=== PATIENT | female | born 1995 | race Caucasian/White ===

== ENCOUNTER 2021-07-13 19:53 | Emergency (ER) | payer OTHER ==
[2021-07-13 21:57] LABS: Urine Blood 2+ (Negative); Urine Glucose Negative (Negative); Urine Protein Trace (Negative); Urine Specific Gravity 1.025 (1.005-1.030)
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
[2021-07-13 23:14] VITALS: BP 150/96; TEMP 98.8; O2SAT 97
[2021-07-13 23:34] LABS: Urine Specific Gravity/Preg 1.025 (1.005-1.030)
== END 2021-07-13 22:53 | disposition home or self-care (01) ==
LOC: ER 19:53
DX: M54.2 Cervicalgia (principal); V49.50XA Passenger injured in collision with unspecified motor vehicles in traffic accident, initial encounter; F17.210 Nicotine dependence, cigarettes, uncomplicated; Z88.5 Allergy status to narcotic agent
CPT/HCPCS: 81003; 81025; 99284

== ENCOUNTER 2021-10-10 21:21 | Emergency (ER) | payer SELFPAY ==
--- OUTSIDE RECORDS SUMMARY | 2021-10-10 21:24 | XMS REPORT | Continuity of Care Document ---
:1995 Author Organization [facility] t Address [address] [place] [address] Care Team Providers Name Role Phone V_Landis Attending Clinician Unavailable G_Pappas Attending Clinician Unavailable V_Landis Admitting Clinician Unavailable G_Pappas Admitting Clinician Unavailable Payers Payer Name Policy Type Policy Number Effective Date Expiration Date abhi [facility] [id number] SERVICES [facility] Problems Condition Condition Condition Status Onset Resolution Last Treating Co mments Source Name Details Category Date Date Treatment Clinician Date Severe Severe Problem Active 2020-0 [place] obesity Obesity 1-21 da 00:00: Medical 00 Group Amenorrhea Amenorrhea Problem Active 2020-0 [facility] 1-21 da 00:00: Medical 00 Group Hidradenit Hidradenit Problem Active 2020-0 [facility] is is 1-21 da suppurativ Suppurativ 00:00: Me dical a a 00 Group Primary Primary Problem Active 2020-0 [place] infertilit Infertilit 1-21 da y y 00:00: Medical 00 Group Allergies, Adverse Reactions, Alerts Allergy Allergy Status Severity Reaction(s) Onset Inactive Treating Comm ents Source Name Type Date Date Clinician Codeine Allergy Active Moderate Anaphylaxis [facility] to to severe da substanc Medical e Group Social History Smoking Status Start Date Stop Date Source Heavy Tobacco Smoker [facility] Medications Ordered Filled Start Stop Current Ordering Indication Dosage Frequency Signature Comments Components Source Medication Medication Date Date Medication? Clinician (SIG) Name Name clindamycin clindamycin No clindamyci [place] 1 % topical 1 % topical n 1 % da gel APPLY A gel APPLY A topical Medical THIN LAYER THIN LAYER gel APPLY Group TO THE TO THE A THIN AFFECTED AFFECTED LAYER TO AREA(S) BY AREA(S) BY THE TOPICAL TOPICAL AFFECTED ROUTE 2 ROUTE 2 AREA(S) BY TIMES PER TIMES PER TOPICAL DAY DAY ROUTE 2 TIMES PER DAY Keflex 500 Keflex 500 No 1capsul BID Keflex 500 [place] mg capsule mg capsule e(s) mg capsule da Take 1 Take 1 Take 1 Medical capsule capsule capsule Group twice a day twice a day twice a by oral by oral day by route for route for oral route 10 days. 10 days. for 10 days. Prometrium Prometrium No 1capsul Q1D Prometrium [place] 200 mg 200 mg e(s) 200 mg da capsule capsule capsule Medica l Take 1 Take 1 Take 1 Group capsule capsule capsule every day every day every day by oral by oral by oral route for route for route for 10 days. 10 days. 10 days. Vital Signs Vital Name Observation Time Observation Value Comments Source BP Diastolic 2019-09-18 00:00:00 87 mm[Hg] [facility] Height 2019-09-18 00:00:00 66 [in_i] [facility] BMI (Body Mass 2019-09-18 00:00:00 51 kg/m2 [facility] Index) Group BP Systolic 2019-09-18 00:00:00 129 mm[Hg] [facility] Body Weight 2019-09-18 00:00:00 316.2 [lb_av] [facility] Procedures This patient has no known procedures. Plan of Care Planned Activity Planned Date Details Comments Source Diagnostic Test 2019-10-17 test, [facility] 00:00:00 urine [code = Group test, urine] Diagnostic Test 2019-09-18 urinalysis, [facility] Pending 00:00:00 dipstick [code = Group urinalysis, dipstick] Diagnostic Test 2019-09-18 pap, LB + CT/NG/TV [facility] Pending 00:00:00 + reflex HR HPV Group [code = pap, LB + CT/NG/TV + reflex HR HPV] Diagnostic Test 2019-09-18 FSH [facility] 00:00:00 (follicle-stimulati Group ng hormone), serum [code = FSH (follicle-stimulati ng hormone), serum] Diagnostic Test 2019-09-18 lh (luteinizing [facility] Pending 00:00:00 hormone), serum Group [code = lh (luteinizing hormone), serum] Diagnostic Test 2019-09-18 prolactin, serum [facility] 00:00:00 [code = prolactin, Group serum] Diagnostic Test 2019-09-18 TSH, serum or [facility] 00:00:00 plasma [code = TSH, Group serum or plasma] Diagnostic Test 2019-09-18 HbA1c (hemoglobin [facility] 00:00:00 A1c), blood [code = Group HbA1c (hemoglobin A1c), blood] Diagnostic Test 2019-09-18 TSH + free T4, [facility]ending 00:00:00 serum [code = TSH + Group free T4, serum] Diagnostic Test 2019-09-18 lipid panel, serum [facility] Pending 00:00:00 [code = lipid Group panel, serum] Encounters Start End Encounter Admission Attending Care Care Encounter Source Date/Time Date/Time Type Type Clinicians Facility Department ID 2020-07-17 2020-07-17 Outpatient V_Landis [facility] [id number] [place] 02:19:00 02:19:00 [id number] 2020-04-11 2020-04-11 Outpatient V_Landis [facility] MM [id number] [place] 09:34:00 09:34:00 [id number] 2020-03-10 2020-03-10 Outpatient G_Pappas [facility] MM [id number] [place] 05:47:00 05:47:00 [id number] [facility] 2019-11-10 2019-11-10 [place] [id number] [place] 11:19:00 11:19:00 [id number] [facility] 2019-10-26 2019-10-26 Outpatient G_Pappas [facility]G [id number] [place] 01:37:00 01:37:00 0227 [facility] 2019-10-22 2019-10-22 Outpatient G_Pappas [facility] [id number] [place] 08:12:00 08:12:00 [id number] [facility] 2019-09-20 2019-09-20 Outpatient G_Pappas [facility]G [id number] [place] 10:11:00 10:11:00 0122 [facility] 2019-09-20 2019-09-20 Outpatient G_Pappas [facility] MM [id number] [place] 10:11:00 10:11:00 0129 [facility] 2019-09-18 2019-09-18 Outpatient G_Pappas [facility] MM [id number] [place] 04:44:00 04:44:00 0120 Medical Group 2019-09-18 2019-09-18 Jessica Foss [facility] [place] - [id number] [place] 00:00:00 00:00:00 [facility] Bab[facility] da WHNP: [address] [facility] [address] [address] , Ph. [phone] 2019-09-15 2019-09-15 Outpatient G_Pappas [facility] [id number] [place] 02:09:00 02:09:00 0117 Medical Group 2019-09-11 2019-09-11 Outpatient G_Pappas [facility] [id number] [place] 11:47:00 11:47:00 0113 Medical Group 2019-09-11 2019-09-11 Outpatient G_Pappas [facility] [id number] [place] 11:47:00 11:47:00 0116 [facility] Group Results Test Description Test Time Test Comments Results Result Comments Source pap, LB + CT/NG/TV + reflex HR HPV 2019-09-22 00:00:00 Test Item Value Reference Range Interpretation Comme nts chlamydia trachomatis by real-time PCR (reflex to azithromycin nega tive resistance by pyrosequencing) (test code = chlamydia trachomatis by real-time PCR (reflex to azithromycin resistance by pyrosequencing) ) trichomonas vaginalis by real-time PCR (reflex to metronidazole neg ative resistance) (test code = trichomonas vaginalis by real-time PCR (reflex to metronidazole resistance)) neisseria gonorrhoeae by real-time PCR (reflex to antibiotic negati ve resistance by molecular analysis) (test code = neisseria gonorrhoea e by real-time PCR (reflex to antibiotic resistance by molecular analysis)) liquid Pap test with reflex to HPV type-detect 3.0 high risk if ASCUS negative (test code = liquid Pap test with reflex to HPV type-detect 3.0 hig h risk if ASCUS) [facility] Serum or [id number] 08:10:00 Test Item Value Reference Range Interpretation Comments follicle stimulating hormone (test 6.6 mIU/mL . code = follicle stimulating hormone) [facility] [Units/volume] in Serum or [id number] 08:10:00 Test Item Value Reference Range Interpretation Comments luteinizing hormone (test code = 11.8 mIU/mL . luteinizing hormone) [facility] [Mass/volume] in Serum or [id number] 08:10:00 Test Item Value Reference Range Interpretation Comments Prolactin [Mass/volume] in Serum 18.9 NG/mL 4.8-23.3 or Plasma (test code = 2842-3) [facility] [Mass/volume] in [id number] 08:07:00 Test Item Value Reference Range Interpretation Comments Hemoglobin A1c [Mass/volume] in Blood 5.6 % 4.0-6.0 (test code = 11276-7) [facility] panel - Serum or [id number] 08:07:00 Test Item Value Reference Range Interpretation Comments cholesterol level (test code = 174 mg/dL 150-200 cholesterol level) triglycerides level (test code = 116 mg/dL <150 triglycerides level) HDL cholesterol (test code = HDL 44 mg/dL >65 L cholesterol) LDL cholesterol direct (test code = 118 mg/dL <100 H LDL cholesterol direct) cholesterol risk ratio (test code = 3.954 cholesterol risk ratio) [facility] [Units/volume] in Serum or [id number] 08:07:00 Test Item Value Reference Range Interpretation Comments Thyrotropin [Units/volume] in 2.53 uIU/mL 0.36-3.74 Serum or Plasma (test code = 3016-3) [facility] (T4[facility] free [Mass/volume] in Serum or Plasma 2019-09-19 08:07:00 Test Item Value Reference Range Interpretation Comments free T4 (test code = free T4) 1.07 NG/dL 0.93-1.7 [facility] [Mass/volume] in [id number] 08:07:00 Test Item Value Reference Range Interpretation Comments Hemoglobin A1c [Mass/volume] in Blood 5.6 % 4.0-6.0 (test code = 66147-5) [facility] panel - Serum or [id number] 08:07:00 Test Item Value Reference Range Interpretation Comments cholesterol level (test code = 174 mg/dL 150-200 cholesterol level) triglycerides level (test code = 116 mg/dL <150 triglycerides level) HDL cholesterol (test code = HDL 44 mg/dL >65 L cholesterol) LDL cholesterol direct (test code = 118 mg/dL <100 H LDL cholesterol direct) cholesterol risk ratio (test code = 3.954 cholesterol risk ratio) [facility] [Units/volume] in Serum or [id number] 08:07:00 Test Item Value Reference Range Interpretation Comments Thyrotropin [Units/volume] in 2.53 uIU/mL 0.36-3.74 Serum or Plasma (test code = 3016-3) [facility] (T4[facility] free [Mass/volume] in Serum or Plasma 2019-09-19 08:07:00 Test Item Value Reference Range Interpretation Comments free T4 (test code = free T4) 1.07 NG/dL 0.93-1.7 [facility] macro (dipstick) panel - [id number] 16:25:00 Test Item Value Reference Range Interpretation Comments Color (test code = Color) Yellow Appearance (test code = Appearance) Clear Glucose (test code = Glucose) Negative Bilirubin (test code = Bilirubin) Negative Ketone (test code = Ketone) Negative Specific [place] (test code = 1.025 Specific [place]) Blood (test code = Blood) Negative pH (test code = pH) 6.0 Protein (test code = Protein) Negative Urobilinogen (test code = .2 Urobilinogen) Nitrite (test code = Nitrite) negative Leukocytes (test code = Leukocytes) Trace [facility] macro (dipstick) panel - [id number] 16:25:00 Test Item Value Reference Range Interpretation Comments Color (test code = Color) Yellow Appearance (test code = Appearance) Clear Glucose (test code = Glucose) Negative Bilirubin (test code = Bilirubin) Negative Ketone (test code = Ketone) Negative Specific [place] (test code = 1.025 Specific [place]) Blood (test code = Blood) Negative pH (test code = pH) 6.0 Protein (test code = Protein) Negative Urobilinogen (test code = .2 Urobilinogen) Nitrite (test code = Nitrite) negative Leukocytes (test code = Leukocytes) Trace [facility]
[2021-10-10 22:53] LABS: Absolute Lymphocytes (CBC) 3.5 K/uL (0.7-4.9); Hematocrit 43.2 % (36.0-45.0); Lymphocytes % 34.7 % (15.3-44.8); MPV 8.3 fL (7.6-11.3); RBC Red Blood Cell Count 4.93 M/uL (3.86-4.86)
[2021-10-10 23:10] LABS: Protime INR 1.07
[2021-10-10 23:18] LABS: ALT/SGPT 118 U/L (12-78); AST/SGOT 49 U/L (15-37); Albumin 3.5 g/dL (3.4-5.0); Alkaline Phosphatase 43 U/L (45-117); BUN Blood Urea Nitrogen 13 mg/dL (7-18); Bicarbonate 26 mmol/L (21-32); Bilirubin Direct < 0.1 mg/dL (0-0.2); Bilirubin Total 0.2 mg/dL (0.2-1.0); Glucose Level 109 mg/dL (74-106); Magnesium 2.1 mg/dL (1.8-2.4); NT PRO-BNP 26 pg/mL (<125); Potassium 3.7 mmol/L (3.5-5.1); Protein, Total 8.3 g/dL (6.4-8.2); Sodium Level 140 mmol/L (136-145)
[2021-10-11 00:01] LABS: Urine Blood Negative (Negative); Urine Glucose Negative (Negative); Urine Protein Negative (Negative); Urine Specific Gravity 1.025 (1.005-1.030)
[2021-10-11 00:05] LABS: Urine Specific Gravity/Preg 1.025 (1.005-1.030)
--- NOTE | 2021-10-11 01:50 | EDPHYS ---
Physician Documentation [facility] Name: Tameka Lees Age: 26 yrs Sex: Female : 1995 Arrival Date: 10/10/2021 Time: 21:23 Bed 4 Private MD: ED Physician Gasper Tolentino HPI: 10/10 22:35 This 26 yrs old Female presents to ER via Ambulatory with complaints of fast heart cp rate, Dizziness, Chest Pain. 22:35 The patient or guardian reports chest pain that is located primarily in the anterior cp chest wall, mid chest. The patient presents with a history of heart racing. Context: The symptoms occur at rest. Onset: The symptoms/episode began/occurred this morning. Duration: The patient or guardian reports multiple episodes, that are intermittent. The pain radiates to to lower chest below breast bilaterally. Associated signs and symptoms: Pertinent positives: anxiety, chest pain, cough, lightheadedness, dizziness, Pertinent negatives: fever, syncope, vomiting. The chest pain is described as sharp. 22:35 Severity of pain: in the emergency department the pain has improved. 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 Flu vaccine is not up to date. - Social history:: Smoking status: Patient reports the use of cigarette tobacco products, smokes one-half pack cigarettes per day. ROS: 22:40 Constitutional: Negative for body aches, chills, fever, poor PO intake. cp 22:40 Eyes: Negative for injury, pain, redness, and discharge. cp 22:40 ENT: Negative for drainage from ear(s), ear pain, sore throat, difficulty swallowing, difficulty handling secretions. 22:40 Cardiovascular: Positive for chest pain, palpitations, Negative for edema. 22:40 Respiratory: Positive for cough, with no reported sputum, Negative for shortness of breath, wheezing. 22:40 Abdomen/GI: Negative for abdominal pain, nausea, vomiting, and diarrhea. 22:40 Back: Negative for radiated pain. 22:40 : Negative for urinary symptoms. 22:40 Neuro: Positive for dizziness, Negative for altered mental status, syncope, weakness. 22:40 All other systems are negative. Exam: 22:45 Constitutional: The patient appears in no acute distress, alert, awake, cp non-diaphoretic, non-toxic, well developed, well nourished, obese. 22:45 Head/Face: Normocephalic, atraumatic. cp 22:45 Eyes: Periorbital structures: appear normal, Pupils: equal, round, and reactive to light and accomodation, Extraocular movements: intact throughout, Conjunctiva: normal, no exudate, no injection, Sclera: no appreciated abnormality, Lids and lashes: appear normal, bilaterally. 22:45 ENT: External ear(s): are unremarkable, Nose: is normal, Mouth: Lips: moist, Oral mucosa: pink and intact, moist, Posterior pharynx: is normal, airway is patent, no erythema, no exudate. 22:45 Neck: ROM/movement: is normal, is supple, without pain, no range of motions limitations. 22:45 Chest/axilla: Inspection: normal. 22:45 Cardiovascular: Rate: normal, Rhythm: regular, Heart sounds: murmur, not appreciated, Edema: is not appreciated, JVD: is not appreciated. 22:45 Respiratory: the patient does not display signs of respiratory distress, Respirations: normal, no use of accessory muscles, no retractions, labored breathing, is not present, Breath sounds: are clear throughout, no decreased breath sounds, no stridor, no wheezing. 22:45 Abdomen/GI: Exam negative for discomfort, distension, guarding, Inspection: obese 22:45 Back: pain, is absent, ROM is normal. 22:45 Neuro: Orientation: to person, place \T\ time. Mentation: is normal, Motor: moves all fours, strength is normal, Sensation: is normal. Vital Signs: 21:35 BP 144 / 85; Pulse 97; Resp 18; Temp 98; Pulse Ox 97% ; Weight 145.15 kg; Height 5 ft. vc1 7 in. (170.18 cm); Pain 7/10; 22:37 BP 104 / 61; Pulse 89; Resp 18; Pulse Ox 100% on R/A; ll3 23:58 BP 112 / 57; Pulse 85; Resp 21; Pulse Ox 100% on R/A; ll3 10/11 02:06 BP 111 / 71; Pulse 73; Resp 19; Pulse Ox 99% on R/A; ll3 10/10 21:35 Body Mass Index 50.12 (145.15 kg, 170.18 cm) vc1 MDM: 10/10 22:23 Patient medically screened. cp 23:00 Differential diagnosis: abnormal EKG, acute myocardial infarction, acute pericarditis, cp anxiety, chest wall pain, cholecystitis, Cholelithiasis costochondritis, arrythmia, dehydration, stress disorder, pericarditis, pleurisy, pneumonia, pneumothorax, pulmonary embolus. 10/11 01:48 Data reviewed: vital signs, nurses notes, lab test result(s), EKG, radiologic studies, cp CT scan, plain films. 01:48 Data interpreted: teletypesetter monitor: rate is 73 beats/min, rhythm is normal sinus rhythm, cp Interpretation: normal rate, normal rhythm, Pulse oximetry: on room air is 99 %. Interpretation: normal. Test interpretation: by ED physician or midlevel provider: ECG, plain radiologic studies. ED course: VSS. Labs, EKG and radiology studies reviewed. Patient concerned symptoms due to anxiety, but recommend f/u with cardiology for Holter monitor placement. Return to ED worsening symptoms. 10/10 22:28 Order name: Basic Metabolic Panel; Complete Time: 23:26 cp 10/10 22:28 Order name: CBC with Diff; Complete Time: 23:26 cp 10/10 22:28 Order name: LFT's; Complete Time: 23:26 cp 10/10 22:28 Order name: Magnesium; Complete Time: 23:26 cp 10/10 22:28 Order name: NT PRO-BNP; Complete Time: 23:26 cp 10/10 22:28 Order name: PT-INR; Complete Time: 23:26 cp 10/10 22:28 Order name: Troponin HS; Complete Time: 23:26 cp 10/10 22:28 Order name: XRAY Chest (1 view) cp 10/10 22:28 Order name: EKG; Complete Time: 22:28 cp 10/10 22:28 Order name: Cardiac monitoring; Complete Time: 22:37 cp 10/10 23:42 Order name: D-Dimer EDMS 10/11 00:01 Order name: Urine Dipstick-Ancillary EDMS 10/11 00:03 Order name: CT Chest For PE Angio cp 10/11 00:03 Order name: Urine --Ancillary (enter results) cs9 10/10 22:28 Order name: EKG - Nurse/Tech; Complete Time: 22:37 cp 10/10 22:28 Order name: IV Saline Lock; Complete Time: 22:37 cp 10/10 22:28 Order name: Labs collected and sent; Complete Time: 22:58 cp 10/10 22:28 Order name: O2 Per Protocol; Complete Time: 22:37 cp 10/10 22:28 Order name: O2 Sat Monitoring; Complete Time: 22:37 cp 10/10 22:28 Order name: Urine Dipstick-Ancillary (obtain specimen); Complete Time: 00:16 cp 10/10 22:28 Order name: Urine Test (obtain specimen); Complete Time: 00:16 cp Administered Medications: No medications were administered Disposition Summary: 10/11/21 01:49 Discharge Ordered Location: Home cp Problem: new cp Symptoms: have improved cp Condition: Stable cp Diagnosis - Palpitations cp - Chest pain, unspecified cp Followup: cp - With: Uriel Garibay MD - When: 2 - 3 days - Reason: Recheck today's complaints Discharge Instructions: - Discharge Summary Sheet cp - Nonspecific Chest Pain, Adult cp - Palpitations cp - Aspirin and Your Heart cp Forms: - Medication Reconciliation Form cp - Thank You Letter cp - Antibiotic Education cp - Prescription Opioid Use cp - Work release form ll3 Signatures: Dispatcher [employer] EDMS Prabhakar Almeida PA PA cp Christal Brooks, RN RN vc1
--- NOTE | 2021-10-11 01:50 | ER ---
Nurse's Notes [facility] Name: Tameka Lees Age: 26 yrs Sex: Female : 1995 Arrival Date: 10/10/2021 Time: 21:23 Bed 4 Private MD: Diagnosis: Palpitations;Chest pain, unspecified Presentation: 10/10 21:35 Chief complaint: Patient states: I was feeling dizzy this morning so I ate and went to 1 work. I went to work and was dizzy, clammy and having chest pain. I have a history of anxiety and it kind of feels like I was having an attack. Coronavirus screen: Vaccine status: Patient reports being unvaccinated. Ebola Screen: No symptoms or risks identified at this time. Initial Sepsis Screen: Does the patient meet any 2 criteria? No. Patient's initial sepsis screen is negative. Does the patient have a suspected source of infection? No. Patient's initial sepsis screen is negative. Risk Assessment: Do you want to hurt yourself or someone else? Patient reports no desire to harm self or others. Onset of symptoms was October 10, 2021 at 06:00. 21:35 Method Of Arrival: Ambulatory vc1 21:35 Acuity: JF 3 vc1 Triage Assessment: 21:39 General: Appears in no apparent distress. Behavior is calm. Pain: Complains of pain in vc1 anterior aspect of right upper chest, anterior aspect of left upper chest, xiphoid area and mid-sternal area. Cardiovascular: Reports chest pain, diaphoresis, lightheadedness. 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 Flu vaccine is not up to date. - Social history:: Smoking status: Patient reports the use of cigarette tobacco products, smokes one-half pack cigarettes per day. Screenin:37 Abuse screen: Denies threats or abuse. Nutritional screening: No deficits noted. ll3 Tuberculosis screening: No symptoms or risk factors identified. Fall Risk No fall in past 12 months (0 pts). No secondary diagnosis (0 pts). IV access (20 points). Ambulatory Aid- None/Bed Rest/Nurse Assist (0 pts). Gait- Normal/Bed Rest/Wheelchair (0 pts) Mental Status- Oriented to own ability (0 pts). Total Shepherd Fall Scale indicates No Risk (0-24 pts). Assessment: 22:37 General: Appears in no apparent distress. uncomfortable, Behavior is cooperative, ll3 anxious. Pain: Complains of pain in chest Pain radiates to xiphoid area Pain currently is 7 out of 10 on a pain scale. Pain began 9 AM this morning Is continuous. 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 Cardiovascular: Patient's skin is warm and dry. Rhythm is sinus rhythm Chest pain is described as Pain is 7 out of 10 on a pain scale. is located in anterior chest wall radiates to right xiphoid area began 9 AM this morning episodes are continuous. Respiratory: Respiratory effort is even, unlabored, Respiratory pattern is regular, symmetrical. Derm: Skin is pink, warm \T\ dry. 23:58 Reassessment: Patient and/or family updated on plan of care and expected duration. Pain ll3 level reassessed. Patient is alert, oriented x 3, equal unlabored respirations, skin warm/dry/pink. 10/11 00:02 Reassessment: Critical lab D-Dimer [id number] Porter notified. st1 01:49 Reassessment: Patient and/or family updated on plan of care and expected duration. Pain ll3 level reassessed. Patient is alert, oriented x 3, equal unlabored respirations, skin warm/dry/pink. Vital Signs: 10/10 21:35 BP 144 / 85; Pulse 97; Resp 18; Temp 98; Pulse Ox 97% ; Weight 145.15 kg; Height 5 ft. vc1 7 in. (170.18 cm); Pain 7/10; 22:37 BP 104 / 61; Pulse 89; Resp 18; Pulse Ox 100% on R/A; ll3 23:58 BP 112 / 57; Pulse 85; Resp 21; Pulse Ox 100% on R/A; ll3 10/11 02:06 BP 111 / 71; Pulse 73; Resp 19; Pulse Ox 99% on R/A; ll3 10/10 21:35 Body Mass Index 50.12 (145.15 kg, 170.18 cm) vc1 ED Course: 10/10 21:23 Patient arrived in ED. kc5 21:39 Triage completed. vc1 21:40 Arm band placed on right wrist. vc1 22:21 Prabhakar Almeida PA is PHCP. cp 22:21 Gasper Tolentino MD is Attending Physician. cp 22:23 Karon Cortez, RN is Primary Nurse. st1 22:37 Patient has correct armband on for positive identification. Placed in gown. Bed in low ll3 position. Call light in reach. Side rails up X 1. Adult w/ patient. certified tumor registrar on. Pulse ox on. NIBP on. 22:37 Inserted saline lock: 20 gauge in left antecubital area, using aseptic technique. ll3 Patient maintains SpO2 saturation greater than 95% on room air. 22:49 XRAY Chest (1 view) In Process Unspecified. EDMS 02 00:49 CT Chest For PE Angio In Process Unspecified. EDMS 01:49 Uriel Garibay MD is Referral Physician. cp 02:07 No provider procedures requiring assistance completed. IV discontinued, intact, ll3 bleeding controlled, No redness/swelling at site. Pressure dressing applied. Administered Medications: No medications were administered Outcome: 01:49 Discharge ordered by . cp 02:07 Discharged to home ambulatory, with family. ll3 02:07 Condition: stable 02:07 Discharge instructions given to patient, Instructed on discharge instructions, follow up and referral plans. Demonstrated understanding of instructions, follow-up care. 02:07 Patient left the ED. ll3 Signatures: Dispatcher [employer] EDCO Prabhakar Almeida PA PA cp Mary Marks RN RN ll3 Trice Nayak kc5 Karon Cortez, RN RN st1 Christal Brooks RN RN vc1
[2021-10-11 02:40] VITALS: TEMP 98
[2021-10-11 02:44] VITALS: BP 111/71; O2SAT 99
--- NOTE | 2021-10-11 07:37 | RAD REPORT ---
EXAM DESCRIPTION: RAD - Chest Single View - 10/10/2021 10:48 pm CLINICAL HISTORY: CHEST PAIN COMPARISON: No comparisons FINDINGS: Lines: None. Lungs: No evidence of edema or pneumonia. Pleural: No significant pleural effusions or pneumothorax. Cardiac: The heart size is within normal limits. Bones: No acute fractures. Other: IMPRESSION: No acute cardiopulmonary disease.
--- NOTE | 2021-10-11 20:15 | RAD REPORT ---
EXAM DESCRIPTION: CT - Chest For Pe Angio - 10/11/2021 7:20 am CLINICAL HISTORY: The patient is 26 years old and is Female; CHEST PAIN TECHNIQUE: Axial computed tomographic angiography images of the chest with intravenous contrast. S agittal and coronal reformatted images were created and reviewed. This CT exam was performed using one or more of the following dose reduction techniques: automated exposure control, adjustment of t he mA and/or kV according to patient size, and/or use of iterative reconstruction technique. MIP reconstructed images were created and reviewed. COMPARISON: No relevant prior studies available. FINDINGS: PULMONARY ARTERIES: The main pulmonary arteries and proximal segmental branches opacify normally. No pulmonary embolism. AORTA: No acute findings. No thoracic aortic aneurysm. LUNGS: Calcified granuloma within left lower lobe is present. Minimal dependent atelectasis in th e lung bases is present. The lungs are otherwise clear. No mass. PLEURAL SPACE: Unremarkable. No significant effusion. No pneumothorax. HEART: Unremarkable. No cardiomegaly. No significant pericardial effusion. No evidence of R V dysfunction. BONES/JOINTS: No acute fracture. No dislocation. SOFT TISSUES: Unremarkable. LYMPH NODES: Unremarkable. No enlarged lymph nodes. LIVER: The liver is enlarged and diffusely fatty. IMPRESSION: The main pulmonary arteries and proximal segmental branches opacify normally. The florin mckenzie of the pulmonary vessels are inadequately evaluated secondary to contrast timing. 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 The interpreting radiologist is fully responsible for the content of the report.
== END 2021-10-11 02:07 | disposition home or self-care (01) ==
LOC: ER 21:21
DX: R07.9 Chest pain, unspecified (principal); R00.2 Palpitations; F41.9 Anxiety disorder, unspecified; F17.210 Nicotine dependence, cigarettes, uncomplicated; Z88.5 Allergy status to narcotic agent
CPT/HCPCS: 36415; 71045; 71275; 80048; 80076; 81003; 81025; 83735; 83880; 84484; 85025; 85379; 85610; 93005; 99285; Q9967

== ENCOUNTER 2021-11-15 11:20 | Emergency (ER) | payer SELFPAY ==
--- OUTSIDE RECORDS SUMMARY | 2021-11-15 11:23 | XMS REPORT | Continuity of Care Document ---
:1995 Author Organization [facility] t Address [address] [place] [address] Care Team Providers Name Role Phone V_Landis Attending Clinician Unavailable G_Pappas Attending Clinician Unavailable V_Landis Admitting Clinician Unavailable G_Pappas Admitting Clinician Unavailable Payers Payer Name Policy Type Policy Number Effective Date Expiration Date abhi BARBA [facility] [id number] SERVICES [facility] FIDELITY ASSURANCE Problems Condition Condition Condition Status [...] Date Stop Date Source Heavy Tobacco Smoker [facility] Medications Ordered Filled Start [...] Medical Group Height 2019-09-18 00:00:00 66 [in_i] [facility] BMI (Body Mass 2019-09-18 00:00:00 51 kg/m2 [facility] Medical Index) Group BP Systolic 2019-09-18 00:00:00 129 mm[Hg] [facility] Body Weight 2019-09-18 00:00:00 316.2 [lb_av] [facility] Procedures This patient has no known procedures. Plan of Care Planned Activity Planned Date Details Comments Source Diagnostic Test 2019-10-17 test, [facility] 00:00:00 urine [code = Group test, urine] Diagnostic Test 2019-09-18 urinalysis, [facility] 00:00:00 dipstick [code = Group urinalysis, dipstick] Diagnostic Test 2019-09-18 pap, LB + CT/NG/TV [facility]ending 00:00:00 + reflex HR HPV Group [code = pap, LB + CT/NG/TV + reflex HR HPV] Diagnostic Test 2019-09-18 FSH [facility] 00:00:00 (follicle-stimulati Group ng hormone), serum [code = FSH (follicle-stimulati ng hormone), serum] Diagnostic Test 2019-09-18 lh (luteinizing [facility] Pending 00:00:00 hormone), serum Group [code = lh (luteinizing hormone), serum] Diagnostic Test 2019-09-18 prolactin, serum [facility] 00:00:00 [code = prolactin, Group serum] Diagnostic Test 2019-09-18 TSH, serum or [facility] 00:00:00 plasma [code = TSH, Group serum or plasma] Diagnostic Test 2019-09-18 HbA1c (hemoglobin [facility] 00:00:00 A1c), blood [code = Group HbA1c (hemoglobin A1c), blood] Diagnostic Test 2019-09-18 TSH + free T4, [facility]ending 00:00:00 serum [code = TSH + Group free T4, serum] Diagnostic Test 2019-09-18 lipid panel, serum [facility] 00:00:00 [code = lipid Group panel, serum] Encounters Start End Encounter Admission Attending Care Care Encounter Source Date/Time Date/Time Type Type Clinicians Facility Department ID 2020-07-17 2020-07-17 Outpatient V_Landis [facility] [id number] [facility] 02:19:00 02:19:00 [id number] 2020-04-11 2020-04-11 Outpatient V_Landis [facility] [id number] [place] 09:34:00 09:34:00 08[facility] 2020-03-10 2020-03-10 Outpatient G_Pappas [facility] [id number] [place] 05:47:00 05:47:00 0812 [facility] 2019-11-10 2019-11-10 Outpatient G_[place]app[place] [facility] [place] [id number] [place] 11[facility]19:00 11:19:00 0313 [facility] 2019-10-26 2019-10-26 Outpatient G_Pappas [facility] [id number] [place] 01:37:00 01:37:00 0227 [facility] 2019-10-22 2019-10-22 Outpatient G_Pappas [facility] [id number] [place] 08:12:00 08:12:00 [id number] [facility] 2019-09-20 2019-09-20 Outpatient G_Pappas [facility] [id number] [place] 10:11:00 10:11:00 0122 [facility] 2019-09-20 2019-09-20 Outpatient G_Pappas [facility] [id number] [place] 10:11:00 10:11:00 0129 [facility] 2019-09-18 2019-09-18 Outpatient G_Pappas [facility] MM [id number] [place] 04:44:00 04:44:00 0120 Medical Group 2019-09-18 2019-09-18 Jessica Foss [facility] [place] - [id number] [place] 00:00:00 00:00:00 [facility] Babatunde da WHNP: [address] [address] , Ph. [phone] 2019-09-15 2019-09-15 Outpatient G_Pappas [facility] [id number] [place] 02:09:00 02:09:00 0117 Medical Group 2019-09-11 2019-09-11 Outpatient G_Pappas [facility] [id number] [place] 11:47:00 11:47:00 0113 Medical Group 2019-09-11 2019-09-11 Outpatient G_Pappas [facility] [id number] [place] 11:47:00 11:47:00 0116 [facility] Results [...] type-detect 3.0 hig h risk if ASCUS) [facility]Un[facility]] [facility] Serum or [id number] 08:10:00 Test Item Value Reference Range Interpretation Comments follicle stimulating hormone (test 6.6 mIU/mL . code = follicle stimulating hormone) [facility] [Units/volume] in Serum or [id number] 08:10:00 Test Item Value Reference Range Interpretation Comments luteinizing hormone (test code = 11.8 mIU/mL . luteinizing hormone) [facility] [Mass/volume] in Serum or [id number] 08:10:00 Test Item Value Reference Range Interpretation Comments Prolactin [Mass/volume] in Serum 18.9 NG/mL 4.8-23.3 or Plasma (test code = 2842-3) [facility] [Mass/volume] in [id number] 08:07:00 Test Item Value Reference Range Interpretation Comments Hemoglobin A1c [Mass/volume] in Blood 5.6 % 4.0-6.0 (test code = 00285-9) [facility] panel - Serum or [id number] 08:07:00 Test Item Value Reference Range Interpretation Comments cholesterol level (test code = 174 mg/dL 150-200 cholesterol level) triglycerides level (test code = 116 mg/dL <150 triglycerides level) HDL cholesterol (test code = HDL 44 mg/dL >65 L cholesterol) LDL cholesterol direct (test code = 118 mg/dL <100 H LDL cholesterol direct) cholesterol risk ratio (test code = 3.954 cholesterol risk ratio) [facility] [Units/volume] in Serum or [id number] 08:07:00 Test Item Value Reference Range Interpretation Comments Thyrotropin [Units/volume] in 2.53 uIU/mL 0.36-3.74 Serum or Plasma (test code = 3016-3) [facility] (T4[facility] free [Mass/volume] in Serum or Plasma 2019-09-19 08:07:00 Test Item Value Reference Range Interpretation Comments free T4 (test code = free T4) 1.07 NG/dL 0.93-1.7 [facility] [Mass/volume] in [id number] 08:07:00 Test Item Value Reference Range Interpretation Comments Hemoglobin A1c [Mass/volume] in Blood 5.6 % 4.0-6.0 (test code = 38283-0) [facility] panel - Serum or [id number] 08:07:00 Test Item Value Reference Range Interpretation Comments cholesterol level (test code = 174 mg/dL 150-200 cholesterol level) triglycerides level (test code = 116 mg/dL <150 triglycerides level) HDL cholesterol (test code = HDL 44 mg/dL >65 L cholesterol) LDL cholesterol direct (test code = 118 mg/dL <100 H LDL cholesterol direct) cholesterol risk ratio (test code = 3.954 cholesterol risk ratio) [facility] [Units/volume] in Serum or [id number] 08:07:00 Test Item Value Reference Range Interpretation Comments Thyrotropin [Units/volume] in 2.53 uIU/mL 0.36-3.74 Serum or Plasma (test code = 3016-3) [facility] (T4[facility] free [Mass/volume] in Serum or Plasma 2019-09-19 08:07:00 Test Item Value Reference Range Interpretation Comments free T4 (test code = free T4) 1.07 NG/dL 0.93-1.7 [facility] HospitalUrinal[facility] macro (dipstick) panel - [id number] 16:25:00 Test Item Value Reference Range Interpretation Comments Color (test code = Color) Yellow Appearance (test code = Appearance) Clear Glucose (test code = Glucose) Negative Bilirubin (test code = Bilirubin) Negative Ketone (test code = Ketone) Negative Specific Ney (test code = 1.025 Specific Ney) Blood (test code = Blood) Negative pH (test code = pH) 6.0 Protein (test code = Protein) Negative Urobilinogen (test code = .2 Urobilinogen) Nitrite (test code = Nitrite) negative Leukocytes (test code = Leukocytes) Trace [facility] macro (dipstick) panel - [id number] 16:25:00 Test Item Value Reference Range Interpretation Comments Color (test code = Color) Yellow Appearance (test code = Appearance) Clear Glucose (test code = Glucose) Negative Bilirubin (test code = Bilirubin) Negative Ketone (test code = Ketone) Negative Specific Ney (test code = 1.025 Specific Ney) Blood (test code = Blood) Negative pH (test code = pH) 6.0 Protein (test code = Protein) Negative Urobilinogen (test code = .2 Urobilinogen) Nitrite (test code = Nitrite) negative Leukocytes (test code = Leukocytes) Trace [facility]
[2021-11-15 13:16] LABS: SARS-COV-2 RT PCR NEGATIVE (NEGATIVE)
--- NOTE | 2021-11-15 14:04 | RAD REPORT ---
EXAM DESCRIPTION: RAD - Chest Single View - 11/15/2021 1:43 pm CLINICAL HISTORY: COUGH COMPARISON: Chest Single View dated 10/10/2021 FINDINGS: Lines: None. Lungs: No evidence of edema or pneumonia. Pleural: No significant pleural effusions or pneumothorax. Cardiac: The heart size is within normal limits. Bones: No acute fractures. Other: IMPRESSION: No acute cardiopulmonary disease.
--- NOTE | 2021-11-15 14:13 | ER ---
Nurse's Notes [facility] Name: Tameka Lees Age: 26 yrs Sex: Female : 1995 Arrival Date: 11/15/2021 Time: 11:24 Bed 16 Private MD: Diagnosis: Acute upper respiratory infection, unspecified Presentation: 11/15 11:37 Chief complaint: Patient states: covid/flu symptoms x 2 weeks; also states chest pain. vg1 Stated 'I just need a note for work stating Im sick'. Coronavirus screen: Vaccine status: Patient reports being unvaccinated. Client denies travel out of the [place] in the last 14 days. cough unrelated to allergies, runny nose, shaking with chills, sore throat, Client presents with at least one sign or symptom that may indicate coronavirus-19. Standard/surgical mask placed on the client. Ebola Screen: Patient negative for fever greater than or equal to 101.5 degrees Fahrenheit, and additional compatible Ebola Virus Disease symptoms. Initial Sepsis Screen: Does the patient meet any 2 criteria? No. Patient's initial sepsis screen is negative. Does the patient have a suspected source of infection? No. Patient's initial sepsis screen is negative. Risk Assessment: Do you want to hurt yourself or someone else? Patient reports no desire to harm self or others. Onset of symptoms was November 15, 2021. 11:37 Method Of Arrival: Ambulatory vg1 11:37 Acuity: JF 4 vg1 Triage Assessment: 11:40 General: Appears in no apparent distress. comfortable, Behavior is calm, cooperative. vg1 Pain: Complains of pain in chest. Cardiovascular: Patient's skin is warm and dry. 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 - Social history:: Smoking status: Patient reports the use of cigarette tobacco products, 5 cigarettes/day, Reported history of juuling and/or vaping. Screenin:14 Abuse screen: Denies threats or abuse. Denies injuries from another. Nutritional ic1 screening: No deficits noted. Tuberculosis screening: No symptoms or risk factors identified. Fall Risk None identified. Assessment: 12:14 General: Appears uncomfortable, Behavior is calm, cooperative, appropriate for age. ic1 Pain: Complains of pain in chest Pain does not radiate. Pain began suddenly. Neuro: Level of Consciousness is awake, alert, obeys commands, Oriented to person, place, situation. Cardiovascular: Reports chest pain. Respiratory: Reports cough that is Denies shortness of breath. GI: No deficits noted. : No deficits noted. EENT: No deficits noted. Derm: No deficits noted. Musculoskeletal: Reports headache. Vital Signs: 11:37 BP 144 / 72; Pulse 80; Resp 18; Temp 98.1; Pulse Ox 97% ; Weight 149.69 kg; Height 5 vg1 ft. 6 in. (167.64 cm); Pain 3/10; 14:20 BP 112 / 54; Pulse 58; Resp 16; Pulse Ox 98% on R/A; ic1 11:37 Body Mass Index 53.26 (149.69 kg, 167.64 cm) vg1 ED Course: 11:24 Patient arrived in ED. ja2 11:25 Milly Pierre FNP-C is [facility]. kb 11:25 Suleman Aponte MD is Attending Physician. kb 11:40 Triage completed. vg1 11:40 Arm band placed on. vg1 11:41 Mckenna Aparicio, RN is Primary Nurse. ic1 11:49 Strep Sent. mh5 11:49 COVID-19/FLU A+B (Document "Date of Onset" if Symptomatic) Sent. mh5 11:50 Patient has correct armband on for positive identification. Bed in low position. Call [facility] light in reach. Side rails up X 1. Adult w/ patient. Pulse ox on. NIBP on. 11:50 COVID swab sent to lab. Strep swab sent to lab. mh5 12:14 No provider procedures requiring assistance completed. Patient maintains SpO2 ic1 saturation greater than 95% on room air. 13:43 Chest Single View XRAY In Process Unspecified. EDMS 14:28 Patient did not have IV access during this emergency room visit. ic1 Administered Medications: No medications were administered Outcome: 14:12 Discharge ordered by MD. kb 14:27 Discharged to home ambulatory, with significant other. ic1 14:27 Condition: stable 14:27 Discharge instructions given to patient, Instructed on discharge instructions, follow up and referral plans. Demonstrated understanding of instructions, follow-up care. 14:30 Patient left the ED. ic1 Signatures: Dispatcher [employer] EDMilly Cantu FNP-C FNP-Ckb Martinez, Maria mh5 Garcia, Victoria, RN RN vg1 Petra Matos Iesha, JULIANA RN ic1
--- NOTE | 2021-11-15 14:13 | EDPHYS ---
Physician Documentation [facility] Name: Tameka Lees Age: 26 yrs Sex: Female : 1995 Arrival Date: 11/15/2021 Time: 11:24 Bed 16 Private MD: ED Physician Suleman Aponte HPI: 11/15 11:41 This 26 yrs old Female presents to ER via Ambulatory with complaints of Cough, Chest kb Pain, Headache, Sore Throat, Pain All Over. 11:41 The patient or guardian reports cough, flu symptoms, myalgias. Onset: The kb symptoms/episode began/occurred 2 week(s) ago. Severity of symptoms: At their worst the symptoms were mild, moderate, in the emergency department the symptoms are unchanged. Modifying factors: The symptoms are alleviated by nothing, the symptoms are aggravated by nothing. Associated signs and symptoms: Pertinent positives: rhinorrhea, sore throat. The patient has not experienced similar symptoms in the past. The patient has not recently seen a physician. 11:42 Pt reports cough, congestion, chest pain, sore throat, headache and bodyaches for 2 kb weeks. States she came in today because she needs a note for work. 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 - Social history:: Smoking status: Patient reports the use of cigarette tobacco products, 5 cigarettes/day, Reported history of juuling and/or vaping. ROS: 11:40 Constitutional: Negative for fever, chills, and weight loss. kb 11:40 ENT: Positive for rhinorrhea, sinus congestion, sore throat. 11:40 Respiratory: Positive for cough, Negative for dyspnea on exertion, hemoptysis, orthopnea, pleurisy, shortness of breath, sputum production, wheezing. 11:40 Neuro: Positive for headache. 11:40 All other systems are negative. 11:42 Constitutional: Positive for body aches. kb Exam: 11:39 Constitutional: This is a well developed, well nourished patient who is awake, alert, kb and in no acute distress. Head/Face: Normocephalic, atraumatic. ENT: Moist Mucous membranes Cardiovascular: Regular rate and rhythm with a normal S1 and S2. No gallops, murmurs, or rubs. No pulse deficits. Respiratory: Respirations even and unlabored. No increased work of breathing. Talking in full sentences Skin: Warm, dry with normal turgor. Normal color. MS/ Extremity: Pulses equal, no cyanosis. Neurovascular intact. Full, normal range of motion. Neuro: Awake and alert, GCS 15, oriented to person, place, time, and situation. Moves all extremities. Normal gait. Psych: Awake, alert, with orientation to person, place and time. Behavior, mood, and affect are within normal limits. 11:39 ENT: Posterior pharynx: is normal. Vital Signs: 11:37 BP 144 / 72; Pulse 80; Resp 18; Temp 98.1; Pulse Ox 97% ; Weight 149.69 kg; Height 5 vg1 ft. 6 in. (167.64 cm); Pain 3/10; 14:20 BP 112 / 54; Pulse 58; Resp 16; Pulse Ox 98% on R/A; ic1 11:37 Body Mass Index 53.26 (149.69 kg, 167.64 cm) vg1 MDM: 11:39 Patient medically screened. kb 11:39 Data reviewed: vital signs, nurses notes. Data interpreted: Pulse oximetry: on room air kb is 100 %. Interpretation: normal. 14:12 Counseling: I had a detailed discussion with the patient and/or guardian regarding: the kb historical points, exam findings, and any diagnostic results supporting the discharge/admit diagnosis, lab results, radiology results, the need for outpatient follow up, a family practitioner, to return to the emergency department if symptoms worsen or persist or if there are any questions or concerns that arise at home. 11/15 11:35 Order name: COVID-19/FLU A+B (Document "Date of Onset" if Symptomatic); Complete Time: kb 13:19 11/15 11:35 Order name: Strep; Complete Time: 13:00 kb 11/15 11:39 Order name: Chest Single View XRAY; Complete Time: 14:12 kb 11/15 12:58 Order name: Throat Culture EDMS Administered Medications: No medications were administered Disposition Summary: 11/15/21 14:12 Discharge Ordered Location: Home kb Condition: Stable kb Diagnosis - Acute upper respiratory infection, unspecified kb Followup: kb - With: Emergency Department - When: As needed - Reason: Worsening of condition Followup: kb - With: Private Physician - When: 2 - 3 days - Reason: Recheck today's complaints, Continuance of care, Re-evaluation by your physician Discharge Instructions: - Discharge Summary Sheet kb - Upper Respiratory Infection, Adult, [id number] kb - Viral Respiratory Infection, [id number]-Onmi kb Forms: - Medication Reconciliation Form kb - Thank You Letter kb - Work release form kb - Antibiotic Education kb - Prescription Opioid Use kb Signatures: Dispatcher [employer] Milly Posada, HOSTAGE NEGOTIATOR-C HOSTAGE NEGOTIATOR-Khadijah Rosales, RN RN vg1
[2021-11-15 14:46] VITALS: TEMP 98.1
[2021-11-15 14:48] VITALS: BP 112/54; O2SAT 98
== END 2021-11-15 14:30 | disposition home or self-care (01) ==
LOC: ER 11:20
DX: J06.9 Acute upper respiratory infection, unspecified (principal); I49.9 Cardiac arrhythmia, unspecified; F17.210 Nicotine dependence, cigarettes, uncomplicated; Z20.822 Contact with and (suspected) exposure to COVID-19; Z88.5 Allergy status to narcotic agent; Z79.82 Long term (current) use of aspirin
CPT/HCPCS: 0240U; 71045; 87070; 87081; 99284

== ENCOUNTER 2022-09-16 20:58 | Emergency (ER) | payer OTHER ==
--- OUTSIDE RECORDS SUMMARY | 2022-09-16 21:03 | XMS REPORT | Continuity of Care Document ---
:1995 Author Organization [facility] t Address [address] [place] [address] Care Team Providers Name Role Phone SURENDRA SHEA BARR Primary Care Physician Unavailable Magdy Yao Attending Clinician MAGDY PORTER Attending Clinician Unavailable CHRIS Attending Clinician Unavailable Yayo Attending Clinician Unavailable Lynette Attending Clinician Unavailable MAGDY PORTER Admitting Clinician Unavailable CHRIS Admitting Clinician Unavailable Yayo Admitting Clinician Unavailable Lynette Admitting Clinician Unavailable Payers Payer Name Policy Type Policy Number Effective Date Expiration Date abhi [facility] [id number] SERVICES [facility] FIDELITY ASSURANCE Problems Condition Condition Condition Status Onset Resolution Last Treating Co mments Source Name Details Category Date Date Treatment Clinician Date Severe Severe Problem Active [place] obesity Obesity 1- da 00:00: Medical 00 Group Amenorrhea Amenorrhea Problem Active [facility] - da 00:00: Medical 00 Group Hidradenit Hidradenit Problem Active [facility] is is 09-19 da suppurativ Suppurativ 00:00: Me dical a a 00 Group Primary Primary Problem Active [place] infertilit Infertilit 09-19 da y y 00:00: Medical 00 Group No known No known Disease Unive rs active active ity of problems problems [facility] Allergies, Adverse Reactions, Alerts Allergy Allergy Status Severity Reaction(s) Onset Inactive Treating Comm ents Source Name Type Date Date Clinician Codeine Propensi Active Anaphylaxis Un mike ty to 09-05 ity of adverse 00:00: [place] reaction 00 Medical s Branch CODEINE DRUG Active Anaphylaxis Univ ers INGREDI 09-05 ity of 00:00: [place] 00 Medical Branch Codeine Allergy Active Moderate Anaphylaxis M [facility] to to severe da substanc Medical e Group NO KNOWN Drug Active Univers ALLERGIE Class ity of S [facility] Social History Social Habit Start Date Stop Date Quantity Comments Source Exposure to 2022-08-26 2022-09-05 Not sure [facility] SARS-CoV-2 (event) 00:00:00 18:24:00 Medica l Branch Sex Assigned At [birth year] [facility] [place] 00:[facility]:00:00 Medical Branch Smoking Status Start Date Stop Date Source Tobacco smoking consumption Univ [facility] Medical unknown Branch Heavy Tobacco Smoker [facility] Medications Ordered Filled Start Stop Current Ordering Indication Dosage Frequency Signature Comments Components Source Medication Medication Date Date Medication? Clinician (SIG) Name Name amoxicillin 2022- No 500mg 500 mg, U nivers (TRIMOX) 09-06 Oral, ity of capsule 500 01:58: 02:05 [place] 00 :00 dose, On Medical 09/05/22 Branch at 1997, GIULIA
Re ason for Anti-Infec tive: Documented Infection< br>Documen karon Infection Site: HEENT
D uration of Therapy: Other (see Comments) amoxicillin 2022- Yes [id number] 500mg Take 1 Univers 500 mg 09-05 capsule by ity of capsule 00:00: 05:59 mouth in [place] 00 :00 the Medical morning Branch and 1 capsule in the evening. Do all this for 10 days. clindamycin clindamycin No clindamyci [place] 1 % [...] Name Observation Time Observation Value Comments Source Respiratory rate 2022-09-06 00:26:00 16 /min [facility] Body height 2022-09-06 00:26:00 167.6 cm [facility] Body weight 2022-09-06 00:26:00 166.47 kg [facility] BMI 2022-09-06 00:26:00 59.24 kg/m2 [facility] Oxygen saturation in 2022-09-06 00:26:00 98 /min [facility] Arterial blood by [facility] Pulse oximetry Branch Systolic blood 2022-09-06 00:26:00 123 mm[Hg] Univer sity of pressure [facility] Diastolic blood 2022-09-06 00:26:00 73 mm[Hg] [facility] Heart rate 2022-09-06 00:26:00 92 /min [facility] Body temperature 2022-09-06 00:26:00 37.28 [facility] BP Diastolic 2019-09-18 00:00:00 87 mm[Hg] [facility] Height 2019-09-18 00:00:00 66 [in_i] [facility] BMI (Body Mass 2019-09-18 00:00:00 51 kg/m2 [facility]) Group BP Systolic 2019-09-18 00:00:00 129 mm[Hg] [facility] Body Weight 2019-09-18 00:00:00 316.2 [lb_av] [facility] Procedures Procedure Date / Time Performed Performing Clinician Sourc e XR CHEST 2 VW 2022-09-06 01:13:56 Lee [facility] [place] Medical Branch RAPID STREP SCREEN 2022-09-06 00:30:00 Lee [facility] A Medical Branch RAPID INFLUENZA A/B 2022-09-06 00:30:00 [facility] Medical Branch COVID-19 (ID NOW 2022-09-06 00:30:00 Lee [facility] RAPID TESTING) Medical Branch NOTICE OF PRIVACY 2022-09-06 00:11:45 Doctor Unassigned, No Univ [facility] PRACTICES Name Medical Branch CONSENT/REFUSAL FOR 2022-09-06 00:11:09 Doctor Unassigned, No Un [facility] DIAGNOSIS AND Name Medical Branch TREATMENT Plan of Care Planned Activity Planned Date Details Comments Source Diagnostic Test 2019-10-17 test, [facility] Pending 00:00:00 urine [code = Group test, urine] Diagnostic Test 2019-09-18 urinalysis, [facility] 00:00:00 dipstick [code = Group urinalysis, dipstick] Diagnostic Test 2019-09-18 pap, LB + CT/NG/TV [facility] Pending 00:00:00 + reflex HR HPV Group [code = pap, LB + CT/NG/TV + reflex HR HPV] Diagnostic Test 2019-09-18 FSH [facility] Pending 00:00:00 (follicle-stimulati Group ng hormone), serum [code = FSH (follicle-stimulati ng hormone), serum] Diagnostic Test 2019-09-18 lh (luteinizing [facility] Pending 00:00:00 hormone), serum Group [code = lh (luteinizing hormone), serum] Diagnostic Test 2019-09-18 prolactin, serum [facility] P[facility] 00:00:00 [code = prolactin, Group serum] Diagnostic Test 2019-09-18 TSH, serum or [facility] Pending 00:00:00 plasma [code = TSH, Group serum or plasma] Diagnostic Test 2019-09-18 HbA1c (hemoglobin [facility] P[facility] 00:00:00 A1c), blood [code = Group HbA1c (hemoglobin A1c), blood] Diagnostic Test 2019-09-18 TSH + free T4, [facility] Pending 00:00:00 serum [code = TSH + Group free T4, serum] Diagnostic Test 2019-09-18 lipid panel, serum [facility] Pending 00:00:00 [code = lipid Group panel, serum] Encounters Start End Encounter Admission Attending Care Care Encounter Source Date/Time Date/Time Type Type Clinicians Facility Department ID 2022-09-05 2022-09-05 Emergency [facility] [id number] Univers 18:27:00 20:12:00 Magdy GREWAL [id number] [facility] [id number] [facility] [id number] [place] [id number] Branch 2022-09-05 2022-09-05 Emergency X [facility] ERT [id number] Univers 18:27:00 20:12:00 MAGDY denis [facility] 2022-03-25 2022-03-25 Outpatient LISTER_RAQUEL MCKEON [facility] [id number] [place] 00:00:00 00:00:00 SSA [id number] da [facility] Outre h Program 2020-07-17 2020-07-17 Outpatient [facility] [id number] [place] 02:19:00 02:19:00 [id number] [facility] Group 2020-04-11 2020-04-11 Outpatient V[facility] [id number] [place] 09:34:00 09:34:00 0813 [facility] 2020-03-10 2020-03-10 Outpatient G[facility]app[facility] [id number] [place] 05:47:00 05:47:00 [id number] [facility] 2019-11-10 2019-11-10 Outpatient G_Pappas [facility] [id number] [place] 11:19:00 11:19:00 [id number] [facility] 2019-10-26 2019-10-26 Outpatient G_Pappas [facility] [id number] [place] 01:37:00 01:37:00 0227 [facility] 2019-10-22 2019-10-22 Outpatient G_Pappas [facility] [id number] [place] 08:12:00 08:12:00 0223 [facility] 2019-09-20 2019-09-20 Outpatient G_Pappas [facility] [id number] [place] 10:11:00 10:11:00 0122 [facility] 2019-09-20 2019-09-20 Outpatient G_Pappas [facility] [id number] [place] 10:11:00 10:11:00 0129 [facility] 2019-09-18 2019-09-18 Outpatient G_Pappas MM[facility] MMG [id number] [place] 04:44:00 04:44:00 0120 [facility] 2019-09-18 2019-09-18 Jessica oFss [facility] [place] - [id number] [place] 00:00:00 00:00:00 Discovery Babatunde da WHNP: [address] [address] , Ph. [phone] 2019-09-15 2019-09-15 Outpatient G_Pappas MM[facility] MM[facility] [id number] [place] 02:09:00 02:09:00 0117 [facility] 2019-09-11 2019-09-11 Outpatient G_Pappas MM[facility] MMG [id number] [place] 11:47:00 11:47:00 0113 [facility] 2019-09-11 2019-09-11 Outpatient G_Pappas MMG MMG [id number] [place] 11:47:00 11:47:00 0116 [facility] Results Test Description Test Time [...] type-detect 3.0 hig h risk if ASCUS) [facility]Units/volume] in Serum or [id number] 08:10:00 Test Item Value Reference Range Interpretation Comments follicle stimulating hormone (test 6.6 mIU/mL . code = follicle stimulating hormone) [facility] [Units/volume] in Serum or [id number] 08:10:00 Test Item Value Reference Range Interpretation Comments luteinizing hormone (test code = 11.8 mIU/mL . luteinizing hormone) [facility] [Mass/volume] in Serum or [id number] 08:10:00 Test Item Value Reference Range Interpretation Comments Prolactin [Mass/volume] in Serum 18.9 NG/mL 4.8-23.3 or Plasma (test code = 2842-3) [facility] A1[facility] [Mass/volume] in [id number] 08:07:00 Test Item Value Reference Range Interpretation Comments Hemoglobin A1c [Mass/volume] in Blood 5.6 % 4.0-6.0 (test code = 34191-1) [facility] panel - Serum or [id number] 08:07:00 Test Item Value Reference Range Interpretation Comments cholesterol level (test code = 174 mg/dL 150-200 cholesterol level) triglycerides level (test code = 116 mg/dL <150 triglycerides level) HDL cholesterol (test code = HDL 44 mg/dL >65 L cholesterol) LDL cholesterol direct (test code = 118 mg/dL <100 H LDL cholesterol direct) cholesterol risk ratio (test code = 3.954 cholesterol risk ratio) [facility] [Units/volume] in Serum or [id number] 08:07:00 Test Item Value Reference Range Interpretation Comments Thyrotropin [Units/volume] in 2.53 uIU/mL 0.36-3.74 Serum or Plasma (test code = 3016-3) [facility] (T4[facility] free [Mass/volume] in Serum or Plasma 2019-09-19 08:07:00 Test Item Value Reference Range Interpretation Comments free T4 (test code = free T4) 1.07 NG/dL 0.93-1.7 [facility] [Mass/volume] in [id number] 08:07:00 Test Item Value Reference Range Interpretation Comments Hemoglobin A1c [Mass/volume] in Blood 5.6 % 4.0-6.0 (test code = 54019-0) [facility] panel - Serum or [id number] 08:07:00 Test Item Value Reference Range Interpretation Comments cholesterol level (test code = 174 mg/dL 150-200 cholesterol level) triglycerides level (test code = 116 mg/dL <150 triglycerides level) HDL cholesterol (test code = HDL 44 mg/dL >65 L cholesterol) LDL cholesterol direct (test code = 118 mg/dL <100 H LDL cholesterol direct) cholesterol risk ratio (test code = 3.954 cholesterol risk ratio) [facility] [Units/volume] in Serum or [id number] 08:07:00 Test Item Value Reference Range Interpretation Comments Thyrotropin [Units/volume] in 2.53 uIU/mL 0.36-3.74 Serum or Plasma (test code = 3016-3) [facility] (T4) free [Mass/volume] in Serum or Plasma 2019-09-19 08:07:00 Test Item Value Reference Range Interpretation Comments free T4 (test code = free T4) 1.07 NG/dL 0.93-1.7 [facility] CenterUrinalysis macro (dipstick) panel - [id number] 16:25:00 Test Item Value Reference Range Interpretation Comments Color (test code = Color) Yellow Appearance (test code = Appearance) Clear Glucose (test code = Glucose) Negative Bilirubin (test code = Bilirubin) Negative Ketone (test code = Ketone) Negative Specific [place] (test code = 1.025 Specific [place]) Blood (test code = Blood) Negative pH (test code = pH) 6.0 Protein (test code = Protein) Negative Urobilinogen (test code = .2 Urobilinogen) Nitrite (test code = Nitrite) negative Leukocytes (test code = Leukocytes) Trace [facility] Center[facility]inalysis macro (dipstick) panel - [id number] 16:25:00 Test Item Value Reference Range Interpretation Comments Color (test code = Color) Yellow Appearance (test code = Appearance) Clear Glucose (test code = Glucose) Negative Bilirubin (test code = Bilirubin) Negative Ketone (test code = Ketone) Negative Specific [place] (test code = 1.025 Specific [place]) Blood (test code = Blood) Negative pH (test code = pH) 6.0 Protein (test code = Protein) Negative Urobilinogen (test code = .2 Urobilinogen) Nitrite (test code = Nitrite) negative Leukocytes (test code = Leukocytes) Trace [facility]
--- NOTE | 2022-09-16 22:21 | ER ---
Nurse's Notes [facility] Name: Tameka Lees Age: 27 yrs Sex: Female : 1995 Arrival Date: 09/16/2022 Time: 21:01 Bed Treatment Private MD: Diagnosis: Acute gingivitis Presentation: 09/16 21:44 Chief complaint: Patient states: my gums are swollen and it is so painful and it is kd3 making my teeth and my jaw and my ears. My hole mouth and my left ear hurt so bad. It started Wednesday. I had some amoxicillin for strep throat so i am not sure if that would cause this. I've tried oral gel, salt water, nothing helps. Coronavirus screen: Vaccine status: Patient reports being unvaccinated. Ebola Screen: No symptoms or risks identified at this time. Initial Sepsis Screen: Does the patient meet any 2 criteria? No. Patient's initial sepsis screen is negative. Does the patient have a suspected source of infection? No. Patient's initial sepsis screen is negative. Risk Assessment: Do you want to hurt yourself or someone else? Patient reports no desire to harm self or others. Onset of symptoms was September 16, 2022. 21:44 Method Of Arrival: Ambulatory kd3 21:44 Acuity: JF 4 kd3 Triage Assessment: 21:48 General: Appears uncomfortable, Behavior is calm, cooperative. Pain: Complains of pain kd3 in mouth. 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 - Social history:: Smoking status: Reported history of juuling and/or vaping. Smoking status: . Screenin:00 [facility] ED Fall Risk Assessment (Adult) History of falling in the last 3 months, 3 including since admission No falls in past 3 months (0 pts) Confusion or Disorientation No (0 pts) Intoxicated or Sedated No (0 pts) Impaired Gait No (0 pts) Mobility Assist Device Used No (0 pt) Altered Elimination No (0 pt) Score/Fall Risk Level 0 - 2 = Low Risk. Abuse screen: Denies threats or abuse. Denies injuries from another. Nutritional screening: No deficits noted. Tuberculosis screening: No symptoms or risk factors identified. Assessment: 22:00 General: Appears in no apparent distress. uncomfortable, Behavior is calm, cooperative, eh3 appropriate for age. Pain: Complains of pain in mouth. Neuro: Level of Consciousness is awake, alert, obeys commands, Oriented to person, place, time, situation. Cardiovascular: Capillary refill < 3 seconds Patient's skin is warm and dry. Respiratory: Airway is patent Respiratory effort is even, unlabored, Respiratory pattern is regular, symmetrical. GI: No signs and/or symptoms were reported involving the gastrointestinal system. Abdomen is round non-distended. : No signs and/or symptoms were reported regarding the genitourinary system. EENT: Oral mucosa is moist. gum swelling noted. Derm: No signs and/or symptoms reported regarding the dermatologic system. Skin is pink, warm \T\ dry. Musculoskeletal: No signs and/or symptoms reported regarding the musculoskeletal system. Circulation, motion, and sensation intact. Range of motion: intact in all extremities. Vital Signs: 21:44 BP 137 / 73; Pulse 87; Resp 19; Temp 97.8(TE); Pulse Ox 98% on R/A; Weight 161.93 kg; kd3 Height 5 ft. 3 in. (160.02 cm); 22:30 BP 148 / 98; Pulse 85; Resp 18; Pulse Ox 99% on R/A; eh3 21:44 Body Mass Index 63.24 (161.93 kg, 160.02 cm) kd3 ED Course: 21:01 Patient arrived in ED. jj6 21:48 Triage completed. kd3 21:48 Arm band placed on left wrist. kd3 21:51 Nirmala Goss FNP-C is [facility]. snw 21:51 Prabhakar Navarrete MD is Attending Physician. snw 22:00 Patient has correct armband on for positive identification. Bed in low position. Call eh3 light in reach. Side rails up X2. Adult w/ patient. Pulse ox on. NIBP on. Door closed. Noise minimized. 22:16 Claire Spain, JULIANA is Primary Nurse. eh3 22:31 No provider procedures requiring assistance completed. Patient did not have IV access eh3 during this emergency room visit. Administered Medications: 22:28 Drug: [place] (HYDROcodone-acetaminophen) 5 mg-325 mg 1 tabs Route: PO; eh3 22:33 Follow up: Response: Medication administered at discharge. eh3 22:28 Drug: GI Cocktail without - (Maalox Suspension 30 ml, Lidocaine Liquid 2 % 15 eh3 ml) Route: PO; 22:32 Follow up: Response: Pain is decreased eh3 Medication: 22:31 VIS not applicable for this client. eh3 Outcome: 22:20 Discharge ordered by . hellen 22:31 Discharged to home ambulatory, with family. eh3 22:31 Condition: stable 22:31 Discharge instructions given to patient, family, Instructed on discharge instructions, follow up and referral plans. medication usage, Demonstrated understanding of instructions, follow-up care, medications, Prescriptions given X 1. 22:43 Patient left the ED. eh3 Signatures: Nirmala Goss, LOOM FIXER HELPER-C LOOM FIXER HELPER-Csnw Theresa Preciado jj6 Lalitha Dejesus RN RN 3 Claire Spain RN RN 3
--- NOTE | 2022-09-16 22:21 | EDPHYS ---
Physician Documentation [facility] Name: Tameka Lees Age: 27 yrs Sex: Female : 1995 Arrival Date: 09/16/2022 Time: 21:01 Bed Treatment Private MD: ALEJANDRINA Physician Prabhakar Navarrete HPI: 09/16 23:00 This 27 yrs old Female presents to ER via Ambulatory with complaints of Gum snw swelling/pain. 23:00 The patient presents with pain, a white plaque. The problem is located in the frenulum, snw gums and tongue. Onset: The symptoms/episode began/occurred acutely. Duration: The symptoms are continuous, and are unchanged since they started. Associated signs and symptoms: The patient has no apparent associated signs or symptoms. Severity of symptoms: At their worst the symptoms were moderate. The patient has not experienced similar symptoms in the past. taking amoxil for strep. 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 - Social history:: Smoking status: Reported history of juuling and/or vaping. Smoking status: . ROS: 23:00 Constitutional: Negative for fever, chills, and weight loss, Eyes: Negative for injury, snw pain, redness, and discharge. 23:00 Neck: Negative for injury, pain, and swelling, Cardiovascular: Negative for chest pain, palpitations, and edema, Respiratory: Negative for shortness of breath, cough, wheezing, and pleuritic chest pain, Abdomen/GI: Negative for abdominal pain, nausea, vomiting, diarrhea, and constipation, Back: Negative for injury and pain, : Negative for injury, bleeding, discharge, and swelling, MS/Extremity: Negative for injury and deformity, Skin: Negative for injury, rash, and discoloration, Neuro: Negative for headache, weakness, numbness, tingling, and seizure. 23:00 ENT: Positive for ear pain. 23:00 ENT: Positive for Gum pain Exam: 22:59 Constitutional: This is a well developed, well nourished patient who is awake, alert, snw and in no acute distress. Head/Face: Normocephalic, atraumatic. Eyes: Pupils equal round and reactive to light, extra-ocular motions intact. Lids and lashes normal. Conjunctiva and sclera are non-icteric and not injected. Cornea within normal limits. Periorbital areas with no swelling, redness, or edema. Neck: Trachea midline, no thyromegaly or masses palpated, and no cervical lymphadenopathy. Supple, full range of motion without nuchal rigidity, or vertebral point tenderness. No Meningismus. Chest/axilla: Normal chest wall appearance and motion. Nontender with no deformity. No lesions are appreciated. Cardiovascular: Regular rate and rhythm with a normal S1 and S2. No gallops, murmurs, or rubs. Normal PMI, no JVD. No pulse deficits. Respiratory: Lungs have equal breath sounds bilaterally, clear to auscultation and percussion. No rales, rhonchi or wheezes noted. No increased work of breathing, no retractions or nasal flaring. Abdomen/GI: Soft, non-tender, with normal bowel sounds. No distension or tympany. No guarding or rebound. No evidence of tenderness throughout. Back: No spinal tenderness. No costovertebral tenderness. Full range of motion. Skin: Warm, dry with normal turgor. Normal color with no rashes, no lesions, and no evidence of cellulitis. MS/ Extremity: Pulses equal, no cyanosis. Neurovascular intact. Full, normal range of motion. Neuro: Awake and alert, GCS 15, oriented to person, place, time, and situation. Cranial nerves II-XII grossly intact. Motor strength 5/5 in all extremities. Sensory grossly intact. Cerebellar exam normal. Normal gait. 22:59 ENT: Dental exam: gum swelling, that is moderate, diffusely. Vital Signs: 21:44 BP 137 / 73; Pulse 87; Resp 19; Temp 97.8(TE); Pulse Ox 98% on R/A; Weight 161.93 kg; kd3 Height 5 ft. 3 in. (160.02 cm); 22:30 BP 148 / 98; Pulse 85; Resp 18; Pulse Ox 99% on R/A; eh3 21:44 Body Mass Index 63.24 (161.93 kg, 160.02 cm) kd3 MDM: 21:58 Patient medically screened. cristino 22:58 Differential diagnosis: bacterial infection. Data reviewed: vital signs, nurses notes. snw Historians other than the Patient: Friend: . Counseling: I had a detailed discussion with the patient and/or guardian regarding: the historical points, exam findings, and any diagnostic results supporting the discharge/admit diagnosis, the presence of at least one elevated blood pressure reading (>120/80) during this emergency department visit, the need for outpatient follow up, to return to the emergency department if symptoms worsen or persist or if there are any questions or concerns that arise at home. Special discussion: Based on the history and exam findings, there is no indication for further emergent testing or inpatient evaluation. I discussed with the patient/guardian the need to see a dentist for further evaluation of the symptoms. I discussed with the patient/guardian the need to see the primary care provider for further evaluation of the symptoms. Administered Medications: 22:28 Drug: [place] (HYDROcodone-acetaminophen) 5 mg-325 mg 1 tabs Route: PO; eh3 22:33 Follow up: Response: Medication administered at discharge. eh3 22:28 Drug: GI Cocktail without - (Maalox Suspension 30 ml, Lidocaine Liquid 2 % 15 eh3 ml) Route: PO; 22:32 Follow up: Response: Pain is decreased eh3 Disposition Summary: 09/16/22 22:20 Discharge Ordered Location: Home snw Condition: Stable snw Diagnosis - Acute gingivitis snw Followup: snw - With: Emergency Department - When: As needed - Reason: Worsening of condition Followup: snw - With: Private Physician - When: 5 - 6 days - Reason: Recheck today's complaints, Continuance of care, Re-evaluation by your physician Discharge Instructions: - Discharge Summary Sheet snw - Dental Caries, Adult snw - Dental Pain snw - Gingivitis snw - Diet and Dental Disease snw Forms: - Medication Reconciliation Form snw - Thank You Letter snw - Antibiotic Education snw - Prescription Opioid Use snw Prescriptions: - chlorhexidine gluconate 0.12 % Mucous Membrane mouthwash - place 15 milliliter by MUCOUS MEMBRANE route 2 times per day after brushing snw teeth, swish in mouth for 30 seconds then spit out; 480 milliliter; Refills: 0, Product Selection Permitted Signatures: Prabhakar Navarrete MD MD cha Waters, Shelly, WINDOW DRESSER-C WINDOW DRESSER-Csnw Lalitha Dejesus, RN RN kd3 Claire Spain, RN RN eh3
[2022-09-17 00:12] VITALS: TEMP 97.8
[2022-09-17 00:16] VITALS: BP 148/98; O2SAT 99
== END 2022-09-16 22:43 | disposition home or self-care (01) ==
LOC: ER 20:58
DX: K05.00 Acute gingivitis, plaque induced (principal); Z88.5 Allergy status to narcotic agent
CPT/HCPCS: 99283